=== PATIENT | male | born 1990 | race Caucasian/White ===

== ENCOUNTER 2017-05-24 08:39 | Emergency (ER) ==
[2017-05-24 08:43] VITALS: BP 101/56; TEMP 96.9; BMI 18.6
[2017-05-24] MEDS ORDERED: MORPHINE 4 MG/ML SYRINGE IM STA ×2 (08:52→09:53)
[2017-05-24] MEDS ORDERED: ZOFRAN 4 MG/2 ML IM STA ×2 (08:52→09:53)
[2017-05-24 09:06] LABS: BASOPHILS # (AUTO) 0.1 K/uL (0-0.2); BASOPHILS % (AUTO) 0.8 % (0.0-3.0); EOSINOPHILS # (AUTO) 0.3 K/ul (0.0-0.7); HEMATOCRIT 38.9 % (42.0-52.0); HEMOGLOBIN 13.1 g/dl (14.0-18.0); IMMATURE GRANULOCYTE % (AUTO) 0.3 % (0.0-5.0); LYMPHOCYTES # (AUTO) 3.4 K/uL (0.60-3.4); LYMPHOCYTES % (AUTO) 36.3 (10.0-50.0); MEAN CORPUSCULAR HEMOGLOBIN 28.3 pg (27.0-31.0); MEAN CORPUSCULAR HGB CONC 33.7 (31.8-35.4); MONOCYTES # (AUTO) 0.6 K/uL (0.4-2.0); MONOCYTES % (AUTO) 5.9 (0-10); NEUTROPHILS % (AUTO) 53.7; PLATELET COUNT 231 10^3/uL (140-440); RED BLOOD COUNT 4.63 10^6/ul (4.70-6.10); WHITE BLOOD COUNT 9.32 K/ul (4.2-10.2)
[2017-05-24 09:28] LABS: ALBUMIN/GLOBULIN RATIO 1.67; ANION GAP 14.6; BILIRUBIN,TOTAL 0.83 mg/dL (0.00-1.20); CALCIUM 9.4 mg/dL (8.2-10.2); CREATININE 1.11 mg/dL (0.60-1.10); POTASSIUM 3.6 mmol/L (3.5-5.1); TOTAL PROTEIN 6.4 g/dL (6.4-8.2)
[2017-05-24 09:29] LABS: AMYLASE 74 U/L (25-115); LIPASE 70 U/L (8-78)
--- NOTE | 2017-05-24 09:34 | US ---
EXAM: SCROTAL ULTRASOUND HISTORY: Bilateral testicular pain FINDINGS: Scrotal ultrasound exam performed using real time man-scale and color-flow Doppler imaging. The right testis measures cm and the left measures cm. Normal testicular echotexture bilaterally. No evidence of intratesticular mass. Color Doppler flow noted in bilateral testes. Epididymides appear normal bilaterally. No varicocele is identified. There are small nonspecific simple bilateral hydroceles. IMPRESSION: Small nonspecific bilateral simple hydroceles. Otherwise unremarkable exam.
--- NOTE | 2017-05-24 09:47 | CT ---
EXAM: CT Abdomen without contrast. CT Pelvis without contrast. HISTORY: Bilateral groin pain, hernia. Lower abdominal pain. COMPARISON: None available. TECHNIQUE: Multiple axial images of the abdomen and pelvis were obtained without intravenous contra st. Images were reformatted in the coronal plane. FINDINGS: Please note that evaluation of the abdominal and pelvic structures is limited due to lack of intravenous contrast. The lung bases are clear. No acute osseous abnormality identified. The liver, gallbladder, pancreas, spleen, and adrenal glands demonstrate normal contour. There is m ild left hydronephrosis with a 0.2 cm obstructing calculus seen near the left ureteral vesicle junct ion on axial image 72 and coronal image 41. Punctate nonobstructing renal calculi seen bilaterally. Bladder is collapsed. The bowel is normal in course and caliber without evidence for obstruction or inflammatory process. The appendix is normal. No free fluid or free air identified. Small fat-containing inguinal herni as noted bilaterally without associated inflammation. IMPRESSION: 1. A 0.2 cm obstructing calculus near the left ureteral vesicle junction causing mild left hydronep hrosis. Additional punctate bilateral nephrolithiasis. 2. Fat-containing inguinal hernias bilaterally without associated inflammation.
[2017-05-24] MEDS ORDERED: TORADOL IM STA (09:53)
--- NOTE | 2017-05-24 09:56 | ED.PDOC ---
General ED Provider: Dr. GINA SALAZAR Chief Complaint: Back Pain Stated Complaint: left flank and groin pain Time Seen by Physician: 08:40 Mode of Arrival: Walk-In Information Source: Patient Exam Limitations: No limitations Nursing and Triage Documentation Reviewed and Agree: Yes (seen with staff) Complaint Exam - Complaint/Exam Patient Complains of: Reports: Scrotal pain, Groin pain (left) Onset/Duration: today Symptoms Are: Still present Timing: Constant Initial Severity: Moderate Current Severity: Moderate Location of Pain: Reports: Left, Flank, Scrotum, Testicle Character: Reports: Cramping Aggravating: Reports: Voiding, Straining, Palpation Alleviating: Reports: Medications Associated Signs and Symptoms: Reports: Back pain, Dysuria, Appetite change, Nausea, Scrotal pain, Abdominal Pain. Denies: Diaphoresis, Fever, Hematuria, Constipation, Blood in stool, Rectal pain, Vomiting, Penile swelling, Penile discharge, Decreased urine output, Increased urine frequency, Increased thirst, Decreased activity, Lethargy, Scrotal swelling Testicular Torsion Risk Factors: Reports: None Surgical Obstruction Risk Factors: Reports: None Related Surgical History: Reports: None Abdominal Findings: Present: None Differential Diagnoses: UTI, Ureteral Calculi Review of Systems - Review Of Systems Constitutional: Reports: No symptoms Eyes: Reports: No symptoms Ears, Nose, Mouth, Throat: Reports: No symptoms Respiratory: Reports: No symptoms Cardiac: Reports: No symptoms GI: Reports: No symptoms : Reports: Dysuria, Flank pain Musculoskeletal: Reports: No symptoms Skin: Reports: No symptoms Neurological: Reports: No symptoms Endocrine: Reports: No symptoms Hematologic/Lymphatic: Reports: No symptoms All Other Systems: Reviewed and Negative Past Medical History - Past Medical History Previously Healthy: Yes Endocrine: Reports: None Cardiovascular: Reports: None Respiratory: Reports: None Hematological: Reports: None Gastrointestinal: Reports: None Genitourinary: Reports: None Neuro/Psych: Reports: None Musculoskeletal: Reports: None Cancer: Reports: None - Surgical History General Surgical History: Reports: None - Family History Family History: Reports: None - Social History Smoking Status: Never smoker Hx Substance Use: No Alcohol Screening: Occasionally Physical Exam - Physical Exam Appearance: Well-appearing, No pain distress, Well-nourished Eyes: KERLINE, EOMI, Conjunctiva clear ENT: Ears normal, Nose normal, Oropharynx normal Respiratory: Airway patent, Breath sounds clear, Breath sounds equal, Respirations nonlabored Cardiovascular: RRR, Pulses normal, No rub, No murmur GI/: Soft, Nontender, No masses, Bowel sounds normal, No Organomegaly Musculoskeletal: Normal strength (flank pain) Skin: Warm, Dry, Normal color Neurological: Sensation intact, Motor intact, Reflexes intact, Cranial nerves intact, Alert, Oriented Psychiatric: Affect appropriate, Mood appropriate Interpretation - Radiology Interpretation Radiology Interpretation By: Radiologist Radiology Results: Positive (0.2cm obstructing stone) Physician Notification - Case Discussed Physician Notified: brant DE LA ROSA Time of Notification: 11:00 (stated stone should be passes the location od the stone and size was discussed with brnat DE LA ROSA stated pt can go home with pain meds and flomax) Critical Care Note - Critical Care Note Total Time (mins): 0 Course - Course Hematology/Chemistry: 05/24/17 08:50 05/24/17 08:50 Orders, Labs, Meds: Lab Review 05/24/17 05/24/17 08:50 10:00 WBC 9.32 RBC 4.63 L Hgb 13.1 L Hct 38.9 L MCV 84.0 MCH 28.3 MCHC 33.7 RDW Coeff of Doni 13.8 Plt Count 231 Immature Gran % (Auto) 0.3 Neut % (Auto) 53.7 Lymph % (Auto) 36.3 [place] % (Auto) 5.9 Eos % (Auto) 3.0 Baso % (Auto) 0.8 Immature Gran # (Auto) 0.0 Neut # 5.0 Lymph # 3.4 [place] # 0.6 Eos # 0.3 Baso # 0.1 Sodium 141 Potassium 3.6 Chloride 104 Carbon Dioxide 26 Anion Gap 14.6 BUN 10 Creatinine 1.11 H Estimated GFR (MDRD) 78.00 BUN/Creatinine Ratio 9.00 Glucose 135 H Calcium 9.4 Total Bilirubin 0.83 AST 16 ALT 10 L Alkaline Phosphatase 53 Total Protein 6.4 Albumin 4.0 Globulin 2.4 Albumin/Globulin Ratio 1.67 Amylase 74 Lipase 70 Urine Color Yellow Urine Clarity Clear Urine pH 5.5 Ur Specific [place] >=1.030 Urine Protein 1+ Urine Glucose (UA) Negative Urine Ketones Negative Urine Blood 3+ Urine Nitrite Negative Urine Bilirubin 1+ Urine Urobilinogen 0.2 Ur Leukocyte Esterase Negative Urine Microscopic RBC 20-30 Urine Microscopic WBC 0-2 Ur Squamous Epith Cells 0-2 Calcium Oxalate Crystal Trace Urine Bacteria 4+ Urine Mucus 3+ Orders Category Date Time Status AMYLASE Stat LAB 05/24/17 08:50 Completed CBC W/ AUTO DIFF Stat LAB 05/24/17 08:50 Completed COMPREHENSIVE METABOLIC PANEL Stat LAB 05/24/17 08:50 Completed LIPASE Stat LAB 05/24/17 08:50 Completed URINALYSIS C & S IF INDICATED Stat LAB 05/24/17 10:00 Completed URINE CULTURE Stat LAB 05/24/17 10:00 Received Ketorolac Tromethamine [Toradol] MEDS 05/24/17 09:53 Discontinued 60 mg IM ONCE STA Morphine Sulfate [Morphine 4 mg/ml Syringe] MEDS 05/24/17 08:52 Discontinued 4 mg IM ONCE STA Morphine Sulfate [Morphine 4 mg/ml Syringe] MEDS 05/24/17 09:53 Discontinued 4 mg IM ONCE STA Ondansetron HCl/Pf [Zofran 4 mg/2 ml] MEDS 05/24/17 08:52 Discontinued 4 mg IM ONCE STA Ondansetron HCl/Pf [Zofran 4 mg/2 ml] MEDS 05/24/17 09:53 Discontinued 4 mg IM ONCE STA Sodium Chloride 0.9% [Sodium Chloride] 1,000 ml MEDS 05/24/17 10:[address] ABDOMEN/PELVIS WO CONTRAST Stat RADS 05/24/17 08:51 Completed ULTRASOUND SCROTUM [U/S SCROTUM] Stat RADS 05/24/17 08:51 Completed Medications Generic Name Dose Route Start Last Admin Trade Name Freq PRN Reason Stop Dose Admin Sodium Chloride 1,000 mls @ 1,000 mls/hr 05/24/17 10:42 Sodium Chloride IV 05/24/17 11:41 BOLUS STA Discontinued Medications Generic Name Dose Route Start Last Admin Trade Name Freq PRN Reason Stop Dose Admin Ketorolac Tromethamine 60 mg 05/24/17 09:53 05/24/17 10:06 Toradol IM 05/24/17 09:54 60 mg ONCE STA Administration Morphine Sulfate 4 mg 05/24/17 08:52 05/24/17 09:08 Morphine 4 Mg/Ml Syringe IM 05/24/17 08:53 4 mg ONCE STA Administration Morphine Sulfate 4 mg 05/24/17 09:53 05/24/17 10:06 Morphine 4 Mg/Ml Syringe IM 05/24/17 09:54 4 mg ONCE STA Administration Ondansetron HCl 4 mg 05/24/17 08:52 05/24/17 09:08 Zofran 4 Mg/2 Ml IM 05/24/17 08:53 4 mg ONCE STA Administration Ondansetron HCl 4 mg 05/24/17 09:53 05/24/17 10:05 Zofran 4 Mg/2 Ml IM 05/24/17 09:54 4 mg ONCE STA Administration Vital Signs: Temp Pulse Resp BP Pulse Ox 05/24/17 08:39 96.9 F L 63 20 101/56 L 98 Departure - Departure Time of Disposition: 11:00 Disposition: HOME SELF-CARE Discharge Problem: Renal stone Anemia Qualifiers: Anemia type: unspecified type Qualifier Code: (D64.9) Anemia, unspecified Instructions: Renal Colic (ED), How to Strain Your Urine (ED), Flank Pain (ED) , Testicle Pain (ED), Kidney Stones (ED) Condition: Good Pt referred to PMD for follow-up: Yes Additional Instructions: Please call your Family Physician as soon as possible to schedule a follow-up appointment. YOUR ANEMIC WHICJ MEAN YOU HAVE LOW BLOOD COUNT YOU MUST FOLLOW UP WITH YOUR MD OR [facility] SOON POSSIBLE Allergies/Adverse Reactions: Allergies No Known Allergies Allergy (Verified 05/24/17 08:43) Home Medications: Ambulatory Orders 1 [No Reported Medications] 05/24/17 Disposition Discussed With: Patient, Family
[2017-05-24 10:06] LABS: ADD URINE MICROSCOPIC YES; BILIRUBIN,URINE 1+ (NEGATIVE); KETONES,URINE Negative (NEGATIVE); LEUKOCYTE ESTERASE ,URINE Negative (NEGATIVE); NITRITE,URINE Negative (NEGATIVE); PH,URINE 5.5 (5-9); PROTEIN,URINE 1+ (NEGATIVE); URINE, BLOOD 3+ (NEGATIVE)
[2017-05-24 10:12] LABS: BACTERIA,URINE 4+ (NOT PRESENT)
[2017-05-24] MEDS ORDERED: SODIUM CHLORIDE 1,000 ML IV STA (10:42)
== END 2017-05-24 11:23 | disposition home or self-care (01) ==
LOC: ED 08:39
DX: N20.0 Calculus of kidney (principal); D64.9 Anemia, unspecified
CPT/HCPCS: 36415; 80053; 81001; 82150; 83690; 85025; 87086; 96372; 99284